=== PATIENT | male | born 1985 | race Caucasian/White ===

== ENCOUNTER → 2024-05-30 | Outpatient (REF) | payer OTHER | LOC: M LAB REF 17:48 | PROVIDERS: ATTEND Plastic Surgery Surgery of the Hand | DX: D22.5 Melanocytic nevi of trunk (principal) ==

== ENCOUNTER → 2024-12-13 | Outpatient (CLI) | payer OTHER | LOC: M SOG 07:50 | PROVIDERS: ATTEND Physician Assistant | DX: G56.03 Carpal tunnel syndrome, bilateral upper limbs (principal) ==

== ENCOUNTER 2025-01-09 06:43 | Day surgery (SDC) | payer OTHER ==
[~2025-01-09] VITALS: Ht 167.6 cm; Wt 84.3 kg
[~2025-01-09 06:43] MED LIST: ACET500T15 PO; FOCUS PO; NEUR100C PO; [UNRECOGNIZED DRUG - OTHER] PO; nugenix PO
[2025-01-09] MEDS ORDERED: LR 1,000 ML IV SCH ×2 (08:00→09:25)
[2025-01-09] MEDS ORDERED: MIDAZOLAM INJ 2MG/2ML VIAL As Ordered ONE (08:03)
[2025-01-09] MEDS ORDERED: fentaNYL 250 MCG/5 ML INJECTION As Ordered ONE (08:03)
[2025-01-09] MEDS ORDERED: ONDANSETRON 4MG 2ML VIAL As Ordered ONE (08:04)
[2025-01-09] MEDS ORDERED: LIDOCAINE 2% 100MG/5ML SDV (FOR ANES.) As Ordered ONE (08:04)
[2025-01-09] MEDS ORDERED: ACETAMINOPHEN 1000MG/100ML IV BAG As Ordered ONE (08:04)
[2025-01-09] MEDS ORDERED: propofoL 200 MG/20 ML VIAL As Ordered ONE (08:04)
[2025-01-09] MEDS ORDERED: KETOROLAC 30 MG/ML 1ML VIAL As Ordered ONE (08:04)
[2025-01-09] MEDS: ceFAZolin SOD 2 GM IV ONCE IV ONE (08:56)
[2025-01-09] MEDS ORDERED: ePHEDrine SULFATE 25 MG/5 ML(5MG/ML) SYRINGE As Ordered ONE (08:56)
[2025-01-09] MEDS: LIDOCAINE 1% SDV 30ML VIAL As Ordered ONE (09:06)
[2025-01-09] MEDS ORDERED: ONDANSETRON 4MG 2ML VIAL IV PRN (09:25)
[2025-01-09] MEDS ORDERED: fentaNYL 100 MCG/2 ML INJECTION IV PRN (09:25)
[2025-01-09] MEDS ORDERED: SUZE50TA PO (09:47)
[2025-01-09 10:30] VITALS: BP 109/62; TEMP 96.8; O2SAT 100
== END 2025-01-09 10:50 | disposition home or self-care (01) ==
LOC: M SDC 06:43
PROVIDERS: ATTEND Neuromusculoskeletal Medicine, Sports Medicine
DX: G56.01 Carpal tunnel syndrome, right upper limb (principal); Z79.899 Other long term (current) drug therapy
CPT/HCPCS: 64721; J0131; J0690; J1100; J1885; J2250; J2405; J3010